=== PATIENT | female | born 1940 | race Caucasian/White ===

== ENCOUNTER 2019-02-28 20:01 | Inpatient (IN) ==
[2019-02-28] MEDS ORDERED: ONDANSETRON 4 MG/2 ML VIAL IV STA (20:35)
[2019-02-28] MEDS ORDERED: KETOROLAC 60 MG/2 ML VIAL IM ONE (21:23)
[2019-02-28] MEDS ORDERED: KETOROLAC 60 MG/2 ML VIAL IM STA (21:24)
[2019-02-28 21:47] LABS: Basophils % 0.3 % (0.0-0.8); Eosinophils # 0.1 10*3/uL (0.0-0.87); Eosinophils % 0.7 % (0.00-10.9); Hematocrit 39.6 VOL% (35.7-47.0); Hemoglobin 12.6 GM/DL (12.0-16.0); Immature Granulocytes % 0.7 %; Immature Granulocytes Absolute 0.11 #; Lymphocytes # 1.4 10*3/uL (1.4-4.0); Mean Corpuscular HGB Conc 31.8 GM/DL (32-36); Mean Corpuscular Volume 96.6 FL (87-102); Mean Platelet Volume 8.9 FL (9.6-12.0); Monocytes % 7.6 % (1.7-12.7); Neutrophils % 81.7 % (38.7-73.9); Platelet Count 270 T/CUMM (130-400); Red Cell Distribution Width 12.1 % (9.3-17.3)
[2019-02-28 22:12] LABS: Alanine Aminotransferase 13 U/L (13-56); Albumin 3.6 G/DL (3.4-5.0); Alkaline Phosphatase 80 U/L (45-117); Aspartate Amino Transferase 12 U/L (0-37); Bilirubin,Total < 0.39 MG/DL (0.2-1.0); Blood Urea Nitrogen 25 MG/DL (7-18); Calcium 8.8 MG/DL (8.5-10.1); Glucose 125 MG/DL (74-106); Total Protein 7.7 G/DL (6.4-8.3)
[2019-02-28] MEDS ORDERED: HYDROmorphone 2 MG/1 ML VIAL IV STA (23:00)
[2019-02-28] MEDS ORDERED: HYDROmorphone 2 MG/1 ML VIAL ONE (23:02)
[2019-02-28] MEDS ORDERED: HYDROmorphone 2 MG/1 ML VIAL IV PRN (23:55)
[2019-03-01 01:19] LABS: Apearance,Urine CLEAR (Clear); Bacteria,Urine Occasional /HPF (Few); Bilirubin,Urine Negative (Negative); Blood, Urine Negative (Negative); Glucose,Urine (UA) Negative (Negative); Hyaline Casts,Urine 1 /LPF (0-3); Ketones,Urine Negative (Negative); Mucus,Urine Occasional /LPF (Occasional); Nitrite,Urine Negative (Negative); Protein,Urine 30 MG/DL; RBC,Urine <1 /HPF (0-4); Urine Color Yellow (Yellow); Urine Specific Gravity 1.018 (1.001-1.035); Urine Urobilinogen < 2.0 EU/DL (0.2-1.0); WBC,Urine 1 /HPF (0-6)
[2019-03-01] MEDS: METOPROLOL TARTRATE 100 MG TABLET PO SCH ×3 (02:42→20:47)
[2019-03-01] MEDS: NORTRIPTYLINE 25 MG CAPSULE PO SCH ×2 (02:43→20:47)
[2019-03-01] MEDS: LOSARTAN 50 MG TABLET PO SCH ×2 (02:43→20:47)
[2019-03-01] MEDS: DILTIAZEM CD 180 MG CAPSULE PO SCH ×4 (02:43→20:47)
[2019-03-01] MEDS: ONDANSETRON 4 MG/2 ML VIAL IV PRN ×2 (04:33→14:21)
[2019-03-01] MEDS: LEVOTHYROXINE 50 MCG TABLET PO SCH (06:13)
[2019-03-01 06:29] LABS: Basophils % 0.3 % (0.0-0.8); Eosinophils # 0.1 10*3/uL (0.0-0.87); Eosinophils % 0.6 % (0.00-10.9); Hematocrit 34.6 VOL% (35.7-47.0); Hemoglobin 11.1 GM/DL (12.0-16.0); Immature Granulocytes % 0.8 %; Immature Granulocytes Absolute 0.09 #; Lymphocytes % 8.3 % (21.3-54.2); Mean Corpuscular HGB Conc 32.1 GM/DL (32-36); Mean Corpuscular Volume 95.8 FL (87-102); Mean Platelet Volume 8.7 FL (9.6-12.0); Monocytes % 8.7 % (1.7-12.7); Neutrophils % 81.3 % (38.7-73.9); Platelet Count 240 T/CUMM (130-400); Red Blood Count 3.61 MC/CUMM (3.8-5.5); Red Cell Distribution Width 12.1 % (9.3-17.3); White Blood Count 11.9 T/CUMM (4-12)
[2019-03-01 06:45] LABS: PT Patient Result 21.4 SECS
[2019-03-01 07:05] LABS: Albumin 3.1 G/DL (3.4-5.0); Bilirubin,Total 0.4 MG/DL (0.2-1.0); Calcium 8.5 MG/DL (8.5-10.1); Total Protein 6.7 G/DL (6.4-8.3)
[2019-03-01] MEDS ORDERED: SODIUM CHLORIDE 0.9% 1,000 ML IV PRN (07:44)
[2019-03-01] MEDS ORDERED: FAMOTIDINE 20 MG TABLET PO ONE (07:46)
[2019-03-01] MEDS ORDERED: CLINDAMYCIN INJ 900 MG in PREMIX 1 EACH IV ONE (08:58)
[2019-03-01] MEDS: ASCORBIC ACID 500 MG TABLET PO SCH ×2 (09:00→20:48)
[2019-03-01] MEDS: MEMANTINE 10 MG TABLET PO SCH ×2 (09:00→20:47)
[2019-03-01] MEDS ORDERED: DILTIAZEM CD 180 MG CAPSULE PO SCH (09:00)
[2019-03-01] MEDS: MAGNESIUM CHLORIDE 64 MG TABLET PO SCH ×3 (09:00→20:47)
[2019-03-01] MEDS: PANTOPRAZOLE 40 MG TABLET PO SCH (09:00)
[2019-03-01] MEDS ORDERED: CLINDAMYCIN INJ 50 ML IV ONE (09:02)
[2019-03-01] MEDS: LACTATED RINGERS 1,000 ML IV SCH ×3 (09:35→22:35)
[2019-03-01] MEDS ORDERED: BACITRACIN OINT 0.9 GM PACK TOP ONE (10:45)
[2019-03-01] MEDS ORDERED: MAGNESIUM HYDROXIDE SUSP 30 ML UDCUP PO PRN (11:20)
[2019-03-01] MEDS ORDERED: MORPHINE 4 MG/1 ML VIAL IV PRN (11:20)
[2019-03-01] MEDS ORDERED: fentaNYL 100 MCG/2 ML VIAL ONE (11:23)
[2019-03-01] MEDS ORDERED: DESFLURANE 1 UNIT/15 MINUTE INH ONE (11:23)
[2019-03-01] MEDS ORDERED: PROPOFOL 200 MG/20 ML VIAL IV ONE (11:23)
[2019-03-01] MEDS ORDERED: PHENYLEPHRINE 1 MG/10 ML SYRINGE IV ONE (11:24)
[2019-03-01] MEDS ORDERED: GLYCOPYRROLATE 0.4 MG/2 ML VIAL ONE (11:24)
[2019-03-01] MEDS ORDERED: ETOMIDATE 40 MG/20 ML VIAL IV ONE (11:24)
[2019-03-01] MEDS ORDERED: LACTATED RINGERS 1,000 ML IV ONE (11:24)
[2019-03-01] MEDS ORDERED: ONDANSETRON 4 MG/2 ML VIAL ONE (11:45)
[2019-03-01] MEDS ORDERED: HYDROmorphone 2 MG/1 ML VIAL ONE (11:45)
[2019-03-01] MEDS ORDERED: HYDROmorphone 2 MG/1 ML VIAL IV PRN (11:49)
[2019-03-01] MEDS ORDERED: ONDANSETRON 4 MG/2 ML VIAL IV PRN (11:49)
[2019-03-01] MEDS ORDERED: risperiDONE 0.25 MG TABLET PO PRN (14:00)
[2019-03-01] MEDS ORDERED: TUBERCULIN SKIN TEST 0.1 ML SYRINGE INTRADERM ONE (14:00)
[2019-03-01] MEDS: oxyCODONE/ACETAMINOPHEN 5-325 MG TABLET PO PRN (14:20)
[2019-03-01] MEDS: CLINDAMYCIN INJ 900 MG in PREMIX 1 EACH IV SCH ×2 (15:21→22:35)
[2019-03-01] MEDS ORDERED: WARFARIN 4 MG TABLET PO SCH (18:00)
[2019-03-01] MEDS ORDERED: HALOPERIDOL 5 MG/ML AMP IM PRN (18:10)
[2019-03-01] MEDS: DOCUSATE SODIUM 100 MG CAPSULE PO SCH (20:47)
[2019-03-01] MEDS: SIMVASTATIN 20 MG TABLET PO SCH (20:47)
[2019-03-01] MEDS: DONEPEZIL 10 MG TABLET PO SCH (20:47)
[2019-03-01] MEDS ORDERED: QUEtiapine 25 MG TABLET PO SCH (21:00)
[2019-03-01] MEDS: MORPHINE 4 MG/1 ML VIAL IV PRN (22:36)
[2019-03-02] MEDS: LACTATED RINGERS 1,000 ML IV SCH (01:59)
[2019-03-02 05:36] LABS: Basophils % 0.1 % (0.0-0.8); Hematocrit 21.3 VOL% (35.7-47.0); Immature Granulocytes % 0.9 %; Immature Granulocytes Absolute 0.08 #; Lymphocytes # 0.5 10*3/uL (1.4-4.0); Lymphocytes % 5.5 % (21.3-54.2); Mean Corpuscular HGB Conc 32.9 GM/DL (32-36); Mean Corpuscular Volume 95.5 FL (87-102); Mean Platelet Volume 9.2 FL (9.6-12.0); Monocytes % 5.9 % (1.7-12.7); Neutrophils % 87.6 % (38.7-73.9); Platelet Count 180 T/CUMM (130-400); Red Blood Count 2.23 MC/CUMM (3.8-5.5); White Blood Count 8.5 T/CUMM (4-12)
[2019-03-02 05:48] LABS: INR 1.9; PT Patient Result 20.8 SECS
[2019-03-02] MEDS: LEVOTHYROXINE 50 MCG TABLET PO SCH (06:03)
[2019-03-02 06:06] LABS: Calcium 8.6 MG/DL (8.5-10.1)
[2019-03-02] MEDS ORDERED: FUROSEMIDE 40 MG/4 ML VIAL IV PRN (07:04)
[2019-03-02] MEDS ORDERED: SODIUM CHLORIDE 0.9% 1,000 ML IV PRN (07:04)
[2019-03-02] MEDS: METOPROLOL TARTRATE 100 MG TABLET PO SCH ×2 (09:00→20:51)
[2019-03-02] MEDS: PANTOPRAZOLE 40 MG TABLET PO SCH (09:00)
[2019-03-02] MEDS: ASCORBIC ACID 500 MG TABLET PO SCH ×2 (09:01→20:51)
[2019-03-02] MEDS: MAGNESIUM CHLORIDE 64 MG TABLET PO SCH ×3 (09:01→20:51)
[2019-03-02] MEDS: MEMANTINE 10 MG TABLET PO SCH ×2 (09:01→20:52)
[2019-03-02] MEDS: DILTIAZEM CD 180 MG CAPSULE PO SCH ×2 (09:02→20:50)
[2019-03-02] MEDS: DOCUSATE SODIUM 100 MG CAPSULE PO SCH ×2 (09:02→20:50)
[2019-03-02] MEDS ORDERED: ZIPRASIDONE 20 MG/1 ML VIAL IM PRN (11:56)
[2019-03-02] MEDS ORDERED: clonazePAM 0.5 MG TABLET PO PRN (11:57)
[2019-03-02] MEDS ORDERED: WARFARIN 2 MG TABLET PO SCH (18:00)
[2019-03-02] MEDS: DONEPEZIL 10 MG TABLET PO SCH (20:50)
[2019-03-02] MEDS: SIMVASTATIN 20 MG TABLET PO SCH (20:51)
[2019-03-02] MEDS: LOSARTAN 50 MG TABLET PO SCH (20:51)
[2019-03-02] MEDS: NORTRIPTYLINE 25 MG CAPSULE PO SCH (20:52)
[2019-03-02] MEDS: QUEtiapine 100 MG TABLET PO SCH (20:52)
[2019-03-02] MEDS: MELATONIN 3 MG TABLET PO SCH ×2 (20:52→21:08)
[2019-03-02] MEDS: MORPHINE 4 MG/1 ML VIAL IV PRN (21:35)
[2019-03-02] MEDS: ONDANSETRON 4 MG/2 ML VIAL IV PRN (21:39)
[2019-03-03] MEDS: MORPHINE 4 MG/1 ML VIAL IV PRN (00:52)
[2019-03-03 06:00] LABS: Basophils % 0.2 % (0.0-0.8); Eosinophils % 0.2 % (0.00-10.9); Hematocrit 30.5 VOL% (35.7-47.0); Hemoglobin 10.2 GM/DL (12.0-16.0); Immature Granulocytes % 0.8 %; Immature Granulocytes Absolute 0.09 #; Lymphocytes % 9.2 % (21.3-54.2); Mean Corpuscular HGB Conc 33.4 GM/DL (32-36); Mean Corpuscular Volume 90.2 FL (87-102); Mean Platelet Volume 9.6 FL (9.6-12.0); Monocytes % 7.6 % (1.7-12.7); Platelet Count 184 T/CUMM (130-400); Red Blood Count 3.38 MC/CUMM (3.8-5.5); Red Cell Distribution Width 14.9 % (9.3-17.3); White Blood Count 11.1 T/CUMM (4-12)
[2019-03-03 06:11] LABS: INR 2.7
[2019-03-03 06:12] LABS: PT Patient Result 29.5 SECS
[2019-03-03 06:24] LABS: Calcium 8.2 MG/DL (8.5-10.1); Osmolality,Calculated 289.8 MOS/KG (273-304)
[2019-03-03] MEDS: LEVOTHYROXINE 50 MCG TABLET PO SCH (07:10)
[2019-03-03] MEDS: MEMANTINE 10 MG TABLET PO SCH ×2 (08:32→21:10)
[2019-03-03] MEDS: DILTIAZEM CD 180 MG CAPSULE PO SCH ×2 (08:32→21:06)
[2019-03-03] MEDS: MAGNESIUM CHLORIDE 64 MG TABLET PO SCH ×3 (08:32→21:10)
[2019-03-03] MEDS: DOCUSATE SODIUM 100 MG CAPSULE PO SCH ×2 (08:32→21:08)
[2019-03-03] MEDS: METOPROLOL TARTRATE 100 MG TABLET PO SCH ×2 (08:32→21:12)
[2019-03-03] MEDS: ASCORBIC ACID 500 MG TABLET PO SCH ×2 (08:32→21:06)
[2019-03-03] MEDS: PANTOPRAZOLE 40 MG TABLET PO SCH (08:32)
[2019-03-03] MEDS: oxyCODONE/ACETAMINOPHEN 5-325 MG TABLET PO PRN ×3 (08:43→21:08)
[2019-03-03] MEDS ORDERED: cloNIDine 0.1 MG TABLET PO PRN (18:58)
[2019-03-03] MEDS ORDERED: hydrALAZINE 10 MG TABLET PO PRN (19:02)
[2019-03-03] MEDS: DONEPEZIL 10 MG TABLET PO SCH (21:06)
[2019-03-03] MEDS: LOSARTAN 50 MG TABLET PO SCH (21:07)
[2019-03-03] MEDS: QUEtiapine 100 MG TABLET PO SCH (21:09)
[2019-03-03] MEDS: NORTRIPTYLINE 25 MG CAPSULE PO SCH (21:09)
[2019-03-03] MEDS: SIMVASTATIN 20 MG TABLET PO SCH (21:09)
[2019-03-03] MEDS: cloNIDine 0.1 MG TABLET PO SCH (21:14)
[2019-03-04 05:26] LABS: Basophils % 0.3 % (0.0-0.8); Eosinophils # 0.1 10*3/uL (0.0-0.87); Eosinophils % 1.1 % (0.00-10.9); Hematocrit 33.1 VOL% (35.7-47.0); Hemoglobin 11.1 GM/DL (12.0-16.0); Immature Granulocytes % 1.4 %; Immature Granulocytes Absolute 0.14 #; Lymphocytes # 1.2 10*3/uL (1.4-4.0); Lymphocytes % 12.2 % (21.3-54.2); Mean Corpuscular HGB Conc 33.5 GM/DL (32-36); Mean Corpuscular Volume 91.9 FL (87-102); Mean Platelet Volume 9.3 FL (9.6-12.0); Monocytes % 7.7 % (1.7-12.7); Neutrophils % 77.3 % (38.7-73.9); Platelet Count 207 T/CUMM (130-400); Red Cell Distribution Width 14.6 % (9.3-17.3); White Blood Count 9.8 T/CUMM (4-12)
[2019-03-04 05:31] LABS: INR 2.1
[2019-03-04] MEDS: LEVOTHYROXINE 50 MCG TABLET PO SCH (06:06)
[2019-03-04] MEDS: cloNIDine 0.1 MG TABLET PO SCH ×3 (09:09→20:32)
[2019-03-04] MEDS: DOCUSATE SODIUM 100 MG CAPSULE PO SCH (09:09)
[2019-03-04] MEDS: METOPROLOL TARTRATE 100 MG TABLET PO SCH ×2 (09:09→20:33)
[2019-03-04] MEDS: ASPIRIN CHEW 81 MG TABLET PO SCH (09:09)
[2019-03-04] MEDS: DILTIAZEM CD 180 MG CAPSULE PO SCH ×2 (09:09→20:33)
[2019-03-04] MEDS: MEMANTINE 10 MG TABLET PO SCH ×2 (09:09→20:34)
[2019-03-04] MEDS: MAGNESIUM CHLORIDE 64 MG TABLET PO SCH ×3 (09:10→20:32)
[2019-03-04] MEDS: ASCORBIC ACID 500 MG TABLET PO SCH ×2 (09:10→20:33)
[2019-03-04] MEDS: PANTOPRAZOLE 40 MG TABLET PO SCH (09:10)
[2019-03-04] MEDS: oxyCODONE/ACETAMINOPHEN 5-325 MG TABLET PO PRN ×3 (13:53→20:31)
[2019-03-04] MEDS: WARFARIN 1 MG TABLET PO SCH (18:02)
[2019-03-04] MEDS: MELATONIN 3 MG TABLET PO SCH (20:30)
[2019-03-04] MEDS: DONEPEZIL 10 MG TABLET PO SCH (20:31)
[2019-03-04] MEDS: QUEtiapine 100 MG TABLET PO SCH (20:33)
[2019-03-04] MEDS: LOSARTAN 50 MG TABLET PO SCH (20:33)
[2019-03-04] MEDS: DOCUSATE/SENNA 50-8.6 MG TABLET PO SCH (20:34)
[2019-03-04] MEDS: NORTRIPTYLINE 25 MG CAPSULE PO SCH (20:34)
[2019-03-04] MEDS: SIMVASTATIN 20 MG TABLET PO SCH (20:34)
[2019-03-05] MEDS: oxyCODONE/ACETAMINOPHEN 5-325 MG TABLET PO PRN ×4 (00:29→21:05)
[2019-03-05] MEDS: QUEtiapine 100 MG TABLET PO SCH (00:33)
[2019-03-05] MEDS: LEVOTHYROXINE 50 MCG TABLET PO SCH (06:34)
[2019-03-05] MEDS: MEMANTINE 10 MG TABLET PO SCH ×2 (09:17→21:01)
[2019-03-05] MEDS: cloNIDine 0.1 MG TABLET PO SCH ×3 (09:17→20:57)
[2019-03-05] MEDS: MAGNESIUM CHLORIDE 64 MG TABLET PO SCH ×3 (09:17→20:55)
[2019-03-05] MEDS: DILTIAZEM CD 180 MG CAPSULE PO SCH ×2 (09:17→20:59)
[2019-03-05] MEDS: ASPIRIN CHEW 81 MG TABLET PO SCH (09:17)
[2019-03-05] MEDS: METOPROLOL TARTRATE 100 MG TABLET PO SCH ×2 (09:17→21:00)
[2019-03-05] MEDS: DOCUSATE/SENNA 50-8.6 MG TABLET PO SCH ×2 (09:17→21:02)
[2019-03-05] MEDS: ASCORBIC ACID 500 MG TABLET PO SCH ×2 (09:18→20:57)
[2019-03-05] MEDS: PANTOPRAZOLE 40 MG TABLET PO SCH (09:18)
[2019-03-05] MEDS: ONDANSETRON ODT 4 MG TABLET PO PRN (15:37)
[2019-03-05] MEDS: LACTULOSE 20 GM/30 ML UDCUP PO PRN (16:37)
[2019-03-05] MEDS: WARFARIN 1 MG TABLET PO SCH (18:02)
[2019-03-05] MEDS: NORTRIPTYLINE 25 MG CAPSULE PO SCH (20:54)
[2019-03-05] MEDS: DONEPEZIL 10 MG TABLET PO SCH (20:55)
[2019-03-05] MEDS: LOSARTAN 50 MG TABLET PO SCH (21:00)
[2019-03-05] MEDS ORDERED: QUEtiapine 100 MG TABLET PO SCH (21:00)
[2019-03-05] MEDS: MELATONIN 3 MG TABLET PO SCH (21:01)
[2019-03-05] MEDS: SIMVASTATIN 20 MG TABLET PO SCH (21:02)
[2019-03-06 07:55] LABS: PT Patient Result 21.3 SECS
[2019-03-06] MEDS: ASCORBIC ACID 500 MG TABLET PO SCH (09:00)
[2019-03-06] MEDS: LEVOTHYROXINE 50 MCG TABLET PO SCH (09:00)
[2019-03-06] MEDS: PANTOPRAZOLE 40 MG TABLET PO SCH (09:00)
[2019-03-06] MEDS: MAGNESIUM CHLORIDE 64 MG TABLET PO SCH (09:00)
[2019-03-06] MEDS: ASPIRIN CHEW 81 MG TABLET PO SCH (09:00)
[2019-03-06] MEDS: MEMANTINE 10 MG TABLET PO SCH (09:00)
[2019-03-06] MEDS: METOPROLOL TARTRATE 100 MG TABLET PO SCH (09:01)
[2019-03-06] MEDS: cloNIDine 0.1 MG TABLET PO SCH (09:01)
[2019-03-06] MEDS: DILTIAZEM CD 180 MG CAPSULE PO SCH (09:01)
[2019-03-06] MEDS: DOCUSATE/SENNA 50-8.6 MG TABLET PO SCH (09:01)
[2019-03-06] MEDS: ONDANSETRON ODT 4 MG TABLET PO PRN (09:11)
[2019-03-06] MEDS: LACTULOSE 20 GM/30 ML UDCUP PO PRN (13:28)
[2019-03-06] MEDS ORDERED: SODIUM PHOSPHATE ENEMA 133 ML BOTTLE RECTAL ONE ×2 (13:40→14:00)
[2019-03-06 14:26] VITALS: BP 136/79
== END 2019-03-06 14:59 | disposition swing bed (61) | DRG 481 ==
LOC: EDUNIT# → EDBD → N.ED 20:01 → N.EDINP 22:58 → SUATTDRO 22:58 → N.3E 23:22 → N.4E 03-04 15:05
PROVIDERS: ADMIT Internal Medicine; ATTEND Emergency Medicine